=== PATIENT | female | born 1945 | race Two or more races ===

== ENCOUNTER 2017-08-09 12:35 | Outpatient (CLI) | payer OTHER | END 2017-08-09 12:50 | disposition home or self-care (01) | LOC: RAD 501 12:35 | DX: M54.6 Pain in thoracic spine (principal); M54.5 Low back pain ==

== ENCOUNTER 2017-10-12 08:55 | Outpatient (CLI) | payer OTHER | END 2017-10-12 09:11 | disposition home or self-care (01) | LOC: RAD 08:55 | DX: Z12.31 Encounter for screening mammogram for malignant neoplasm of breast (principal); Z87.898 Personal history of other specified conditions; K76.0 Fatty (change of) liver, not elsewhere classified; R74.8 Abnormal levels of other serum enzymes; R79.89 Other specified abnormal findings of blood chemistry; K86.1 Other chronic pancreatitis; M54.5 Low back pain ==

== ENCOUNTER 2017-10-22 11:18 | Outpatient (CLI) | payer OTHER | END 2017-10-22 17:00 | disposition home or self-care (01) | LOC: MRI 11:18 | DX: M54.5 Low back pain (principal); M54.16 Radiculopathy, lumbar region | CPT/HCPCS: 72148 ==

== ENCOUNTER 2017-11-11 11:53 | Outpatient (CLI) | payer OTHER | END 2017-11-11 12:24 | disposition home or self-care (01) | LOC: MRI 11:53 | DX: M54.5 Low back pain (principal); S24.159A Other incomplete lesion at unspecified level of thoracic spinal cord, initial encounter | CPT/HCPCS: 72157; A9579 ==

== ENCOUNTER → 2018-05-17 | Outpatient (CLI) | payer OTHER | END | disposition home or self-care (01) | LOC: MRI 07:09 | DX: D49.0 Neoplasm of unspecified behavior of digestive system (principal); D01.7 Carcinoma in situ of other specified digestive organs | CPT/HCPCS: 74181 ==

== ENCOUNTER 2018-06-27 07:23 | Outpatient (CLI) | payer OTHER | END 2018-06-27 14:43 | disposition home or self-care (01) | LOC: LAB 07:23 | DX: E03.8 Other specified hypothyroidism (principal); E78.49 Other hyperlipidemia; D01.7 Carcinoma in situ of other specified digestive organs; C25.1 Malignant neoplasm of body of pancreas; D50.8 Other iron deficiency anemias; D51.8 Other vitamin B12 deficiency anemias; I10 Essential (primary) hypertension; D51.1 Vitamin B12 deficiency anemia due to selective vitamin B12 malabsorption with proteinuria; D51.0 Vitamin B12 deficiency anemia due to intrinsic factor deficiency; E06.3 Autoimmune thyroiditis; R97.0 Elevated carcinoembryonic antigen [CEA]; R97.8 Other abnormal tumor markers; I11.9 Hypertensive heart disease without heart failure; K86.89 Other specified diseases of pancreas; K76.0 Fatty (change of) liver, not elsewhere classified ==

== ENCOUNTER → 2018-08-05 08:01 | Outpatient (CLI) | payer OTHER | END | disposition home or self-care (01) | LOC: LAB 08:01 | DX: E04.0 Nontoxic diffuse goiter (principal); K76.1 Chronic passive congestion of liver; E78.2 Mixed hyperlipidemia; I11.0 Hypertensive heart disease with heart failure; E53.8 Deficiency of other specified B group vitamins; N39.0 Urinary tract infection, site not specified ==

== ENCOUNTER → 2018-11-03 08:13 | Outpatient (CLI) | payer OTHER | END | disposition home or self-care (01) | LOC: LAB 08:13 | DX: R74.8 Abnormal levels of other serum enzymes (principal); D49.0 Neoplasm of unspecified behavior of digestive system; D01.7 Carcinoma in situ of other specified digestive organs ==

== ENCOUNTER 2018-11-03 08:37 | Outpatient (CLI) | payer OTHER | END 2018-11-03 08:40 | disposition home or self-care (01) | LOC: SONOGRAMA 08:37 | DX: R10.84 Generalized abdominal pain (principal); D49.0 Neoplasm of unspecified behavior of digestive system; R74.8 Abnormal levels of other serum enzymes ==

== ENCOUNTER 2018-12-06 10:11 | Outpatient (CLI) | payer OTHER | END 2018-12-06 10:15 | disposition home or self-care (01) | LOC: LAB 10:11 | DX: I11.0 Hypertensive heart disease with heart failure (principal); D53.8 Other specified nutritional anemias; E04.8 Other specified nontoxic goiter; E11.9 Type 2 diabetes mellitus without complications; E78.2 Mixed hyperlipidemia; N39.0 Urinary tract infection, site not specified; N36.0 Urethral fistula ==

== ENCOUNTER 2019-03-16 10:51 | Outpatient (CLI) | payer OTHER | END 2019-03-16 11:01 | disposition home or self-care (01) | LOC: LAB 10:51 | DX: K76.1 Chronic passive congestion of liver (principal); K76.89 Other specified diseases of liver; I11.0 Hypertensive heart disease with heart failure; E11.9 Type 2 diabetes mellitus without complications; E04.8 Other specified nontoxic goiter; N39.0 Urinary tract infection, site not specified; D53.8 Other specified nutritional anemias ==

== ENCOUNTER 2019-05-02 07:35 | Outpatient (CLI) | payer OTHER | END 2019-05-02 07:41 | disposition home or self-care (01) | LOC: LAB 07:35 | DX: E04.8 Other specified nontoxic goiter (principal); E55.9 Vitamin D deficiency, unspecified; E78.2 Mixed hyperlipidemia; D53.8 Other specified nutritional anemias; D50.1 Sideropenic dysphagia; Z12.11 Encounter for screening for malignant neoplasm of colon ==

== ENCOUNTER 2019-05-03 08:03 | Outpatient (CLI) | payer OTHER | END 2019-05-03 08:10 | disposition home or self-care (01) | LOC: LAB 08:03 | DX: E04.8 Other specified nontoxic goiter (principal); E78.2 Mixed hyperlipidemia; D53.8 Other specified nutritional anemias; D50.1 Sideropenic dysphagia; Z12.11 Encounter for screening for malignant neoplasm of colon; E55.9 Vitamin D deficiency, unspecified ==

== ENCOUNTER 2019-07-26 09:18 | Outpatient (CLI) | payer OTHER | END 2019-07-26 09:36 | disposition home or self-care (01) | LOC: LAB 09:18 | PROVIDERS: ATTEND Internal Medicine Endocrinology, Diabetes & Metabolism | DX: E04.8 Other specified nontoxic goiter (principal); K76.1 Chronic passive congestion of liver; I11.0 Hypertensive heart disease with heart failure; E61.2 Magnesium deficiency; E61.7 Deficiency of multiple nutrient elements; E11.9 Type 2 diabetes mellitus without complications; E78.2 Mixed hyperlipidemia; N39.0 Urinary tract infection, site not specified; E55.9 Vitamin D deficiency, unspecified ==

== ENCOUNTER 2019-09-11 14:52 | Emergency (ER) | payer OTHER ==
[~2019-09-11] VITALS: Ht 149.9 cm; Wt 64.9 kg
[2019-09-11] MEDS ORDERED: SYNTHROID150 MCG PO (15:30)
[2019-09-11] MEDS ORDERED: IBERSARTAN PO (15:30)
[2019-09-11] MEDS ORDERED: REMERON15 M1 PO (15:31)
== END 2019-09-11 22:53 | disposition home or self-care (01) ==
LOC: ER 14:52
DX: R10.11 Right upper quadrant pain (principal)

== ENCOUNTER 2019-11-08 08:18 | Outpatient (CLI) | payer OTHER ==
[~2019-11-08 08:18] MED LIST: IBERSARTAN PO; REMERON15 M1 PO; SYNTHROID150 MCG PO
== END 2019-11-08 08:26 | disposition home or self-care (01) ==
LOC: LAB 08:18
PROVIDERS: ATTEND Internal Medicine Endocrinology, Diabetes & Metabolism
DX: E89.0 Postprocedural hypothyroidism (principal); E55.9 Vitamin D deficiency, unspecified; I11.9 Hypertensive heart disease without heart failure; K76.0 Fatty (change of) liver, not elsewhere classified; I11.0 Hypertensive heart disease with heart failure; D53.8 Other specified nutritional anemias; N39.0 Urinary tract infection, site not specified; N36.2 Urethral caruncle; E78.2 Mixed hyperlipidemia; E11.9 Type 2 diabetes mellitus without complications; E04.8 Other specified nontoxic goiter

== ENCOUNTER → 2020-01-12 | Outpatient (CLI) | payer OTHER | END | disposition home or self-care (01) | LOC: MRI 01-10 09:15 | PROVIDERS: ATTEND Internal Medicine Hepatology | DX: K90.81 Whipple's disease (principal) | CPT/HCPCS: 74181 ==

== ENCOUNTER → 2020-02-27 09:59 | Outpatient (CLI) | payer OTHER | END | disposition home or self-care (01) | LOC: LAB 09:59 | PROVIDERS: ATTEND Internal Medicine Endocrinology, Diabetes & Metabolism | DX: E04.8 Other specified nontoxic goiter (principal); I11.0 Hypertensive heart disease with heart failure; D53.8 Other specified nutritional anemias; N39.0 Urinary tract infection, site not specified; N36.2 Urethral caruncle; E11.9 Type 2 diabetes mellitus without complications ==

== ENCOUNTER → 2020-07-25 08:44 | Outpatient (CLI) | payer OTHER | END | disposition home or self-care (01) | LOC: LAB 08:44 | PROVIDERS: ATTEND Internal Medicine Endocrinology, Diabetes & Metabolism | DX: E78.2 Mixed hyperlipidemia (principal); E04.9 Nontoxic goiter, unspecified; E55.9 Vitamin D deficiency, unspecified; D50.0 Iron deficiency anemia secondary to blood loss (chronic); I12.0 Hypertensive chronic kidney disease with stage 5 chronic kidney disease or end stage renal disease; E11.9 Type 2 diabetes mellitus without complications; N36.2 Urethral caruncle; N39.0 Urinary tract infection, site not specified; I11.9 Hypertensive heart disease without heart failure; E89.0 Postprocedural hypothyroidism; E50.8 Other manifestations of vitamin A deficiency ==

== ENCOUNTER → 2020-11-26 09:36 | Outpatient (CLI) | payer OTHER | END | disposition home or self-care (01) | LOC: LAB 09:36 | PROVIDERS: ATTEND Internal Medicine Endocrinology, Diabetes & Metabolism | DX: D53.8 Other specified nutritional anemias (principal); I11.0 Hypertensive heart disease with heart failure; N39.0 Urinary tract infection, site not specified; E78.2 Mixed hyperlipidemia; E04.8 Other specified nontoxic goiter; K76.1 Chronic passive congestion of liver; E11.9 Type 2 diabetes mellitus without complications ==

== ENCOUNTER 2021-01-07 08:00 | Outpatient (CLI) | payer OTHER | END 2021-01-07 09:26 | disposition home or self-care (01) | LOC: PPH VACUNA 08:00 | PROVIDERS: ATTEND Emergency Medicine Pediatric Emergency Medicine | DX: Z23 Encounter for immunization (principal) ==

== ENCOUNTER 2021-01-20 09:16 | Outpatient (CLI) | payer OTHER | END 2021-01-20 09:17 | disposition home or self-care (01) | LOC: LAB 09:16 | PROVIDERS: ATTEND Internal Medicine Endocrinology, Diabetes & Metabolism | DX: I11.0 Hypertensive heart disease with heart failure (principal); N39.0 Urinary tract infection, site not specified; E04.8 Other specified nontoxic goiter ==

== ENCOUNTER 2021-05-01 08:04 | Outpatient (CLI) | payer OTHER | END 2021-05-01 08:48 | disposition home or self-care (01) | LOC: LAB 08:04 | PROVIDERS: ATTEND Internal Medicine Endocrinology, Diabetes & Metabolism | DX: E04.9 Nontoxic goiter, unspecified (principal); I11.0 Hypertensive heart disease with heart failure; D53.9 Nutritional anemia, unspecified; N39.0 Urinary tract infection, site not specified; E78.2 Mixed hyperlipidemia; E11.9 Type 2 diabetes mellitus without complications ==

== ENCOUNTER 2021-07-01 08:00 | Outpatient (CLI) | payer OTHER | END 2021-07-01 08:30 | disposition home or self-care (01) | LOC: PPH VACUNA 08:00 | PROVIDERS: ATTEND Emergency Medicine Pediatric Emergency Medicine | DX: Z23 Encounter for immunization (principal); Z71.85 Encounter for immunization safety counseling ==

== ENCOUNTER → 2021-08-02 | Outpatient (CLI) | payer OTHER | END | disposition home or self-care (01) | LOC: LAB 08:35 | PROVIDERS: ATTEND Internal Medicine Endocrinology, Diabetes & Metabolism | DX: D53.9 Nutritional anemia, unspecified (principal); N39.0 Urinary tract infection, site not specified; I11.0 Hypertensive heart disease with heart failure; E78.2 Mixed hyperlipidemia; E04.8 Other specified nontoxic goiter; N36.2 Urethral caruncle; D50.1 Sideropenic dysphagia; D50.9 Iron deficiency anemia, unspecified; D58.8 Other specified hereditary hemolytic anemias ==

== ENCOUNTER 2021-09-16 09:30 | Outpatient (CLI) | payer OTHER ==
[~2021-09-16 09:30] MED LIST changes: +AVAPRO150 MG PO; +CLEOCIN HCL300 MG PO; +LEVOXYL175 MCG PO; +LIPOFEN150 MG; +SIMVASTATIN5 MG PO; +TOPROL XL25 M1 PO
== END 2021-09-16 09:31 | disposition home or self-care (01) ==
LOC: LAB 09:30
PROVIDERS: ATTEND Specialist/Technologist, Other Nephrology
DX: E11.21 Type 2 diabetes mellitus with diabetic nephropathy (principal); D63.1 Anemia in chronic kidney disease; N30.00 Acute cystitis without hematuria; E78.5 Hyperlipidemia, unspecified; E03.9 Hypothyroidism, unspecified; N18.30 Chronic kidney disease, stage 3 unspecified

== ENCOUNTER 2021-09-20 08:01 | Outpatient (CLI) | payer OTHER | END 2021-09-20 08:02 | disposition home or self-care (01) | LOC: LAB 08:01 | PROVIDERS: ATTEND Specialist/Technologist, Other Nephrology | DX: N18.30 Chronic kidney disease, stage 3 unspecified (principal); E11.21 Type 2 diabetes mellitus with diabetic nephropathy; D63.1 Anemia in chronic kidney disease; N30.00 Acute cystitis without hematuria; E78.5 Hyperlipidemia, unspecified; E03.9 Hypothyroidism, unspecified ==

== ENCOUNTER 2021-09-22 07:19 | Outpatient (CLI) | payer OTHER | END 2021-09-22 07:28 | disposition home or self-care (01) | LOC: SONOGRAMA 07:19 | PROVIDERS: ATTEND Specialist/Technologist, Other Nephrology | DX: R10.9 Unspecified abdominal pain (principal); N18.30 Chronic kidney disease, stage 3 unspecified; R31.9 Hematuria, unspecified ==

== ENCOUNTER 2021-11-03 09:54 | Outpatient (CLI) | payer OTHER | END 2021-11-03 10:03 | disposition home or self-care (01) | LOC: LAB 09:54 | PROVIDERS: ATTEND Internal Medicine Endocrinology, Diabetes & Metabolism | DX: D53.9 Nutritional anemia, unspecified (principal); N39.0 Urinary tract infection, site not specified; E04.9 Nontoxic goiter, unspecified; E11.9 Type 2 diabetes mellitus without complications; N18.2 Chronic kidney disease, stage 2 (mild); Z11.2 Encounter for screening for other bacterial diseases ==

== ENCOUNTER → 2021-11-04 08:10 | Outpatient (CLI) | payer OTHER | END | disposition home or self-care (01) | LOC: LAB 08:10 | PROVIDERS: ATTEND Internal Medicine Endocrinology, Diabetes & Metabolism | DX: I11.0 Hypertensive heart disease with heart failure (principal); N39.0 Urinary tract infection, site not specified; E78.2 Mixed hyperlipidemia; E04.9 Nontoxic goiter, unspecified; E11.9 Type 2 diabetes mellitus without complications; N18.2 Chronic kidney disease, stage 2 (mild); Z11.0 Encounter for screening for intestinal infectious diseases; D53.0 Protein deficiency anemia ==

== ENCOUNTER 2021-12-13 09:01 | Outpatient (CLI) | payer OTHER | END 2021-12-13 09:02 | disposition home or self-care (01) | LOC: LAB 09:01 | PROVIDERS: ATTEND Internal Medicine Endocrinology, Diabetes & Metabolism | DX: I11.0 Hypertensive heart disease with heart failure (principal); D50.1 Sideropenic dysphagia; E04.9 Nontoxic goiter, unspecified; D53.9 Nutritional anemia, unspecified; E21.3 Hyperparathyroidism, unspecified; N39.0 Urinary tract infection, site not specified ==